=== PATIENT | female | born 1935 | race Caucasian/White ===

== ENCOUNTER 2020-01-11 15:30 | Inpatient (IN) ==
[2020-01-11] MEDS ORDERED: Naloxone 0.4 MG/ML INJ IVP PRN (18:16)
[2020-01-11] MEDS ORDERED: Acetaminophen 325 MG TABLET PO PRN (18:16)
[2020-01-11] MEDS ORDERED: Furosemide 20 MG TABLET PO PRN (19:26)
[2020-01-11 20:02] LABS: Basophils % 0.3 %; Eosinophils % 0.1 %; Hematocrit 36.4 % (35.3-44.9); Hemoglobin 11.4 g/dL (11.5-15.4); Immature Granulocytes % 0.3 % (0-4); Lymphocytes # 7.4 K/mcL (0.6-4.6); Lymphocytes % 46.7 %; Mean Corpuscular HGB Conc 31.3 g/dL (31.6-35.5); Mean Corpuscular Hemoglobin 30.2 pg (28.0-33.3); Mean Corpuscular Volume 96.6 fL (83.0-100.0); Mean Platelet Volume 9.9 fL (9.4-12.4); Monocytes # 0.9 K/mcL (0.0-1.3); Monocytes % 5.5 %; Neutrophils # 7.4 K/mcL (1.6-8.9); Platelet Count 117 K/mcL (140-400); Red Blood Count 3.77 M/mcL (3.82-4.97); Red Cell Distribution Width 14.1 % (11.5-14.5); Segmented Neutrophils % 47.1 %; White Blood Count 15.8 K/mcL (4.3-11.1)
[2020-01-11 20:05] LABS: Basophils # 0.1 K/mcL (0.0-0.2)
[2020-01-11 20:06] LABS: INR 1.7; Prothrombin Time 19.2 Seconds (9.4-12.1)
[2020-01-11 20:09] LABS: Activated Partial Thrombo Time 34.8 Seconds (26.0-36.0)
[2020-01-11 20:19] LABS: BUN/Creatinine Ratio 26 (6-26); Blood Urea Nitrogen 18 mg/dL (8-23); Calcium 8.7 mg/dL (8.6-10.3); Carbon Dioxide 29 mEq/L (23-29); Chloride 105 mEq/L (98-107); Glucose 126 mg/dL (70-105); Magnesium 1.9 mg/dL (1.6-2.6); Osmolality,Calculated 291 (280-300); Phosphorous 4.4 mg/dL (2.7-4.5); Sodium 139 mEq/L (136-145); eGFR For African Americans > 60 (> 60); eGFR For Non-African Americans > 60 (> 60)
[2020-01-11 20:20] LABS: Reactive Lymphocytes Present (Not Present)
[2020-01-11] MEDS: *HR* HYDROcodone/Acet 5/325 mg TABLET PO PRN (21:06)
[2020-01-11] MEDS: Apixaban 5 MG TABLET PO SCH (21:33)
[2020-01-12] MEDS: *HR* HYDROcodone/Acet 5/325 mg TABLET PO PRN ×3 (04:41→18:49)
[2020-01-12] MEDS: Apixaban 5 MG TABLET PO SCH (09:29)
[2020-01-12] MEDS: Aspirin Enteric Coated 81 MG Tablet PO SCH (09:29)
[2020-01-12] MEDS: lisinopriL 20 MG TABLET PO SCH (09:30)
[2020-01-12] MEDS: DilTIAZem CD (24hr) 120 MG CAP.ER.24H PO SCH (09:30)
[2020-01-12] MEDS: FLUoxetine 20 MG CAPSULE PO SCH (09:30)
[2020-01-12] MEDS: D5% in 0.9% NACL 1,000 ML IVC SCH (15:33)
[2020-01-12] MEDS: *HR* Heparin 5,000 UNIT/ML VIAL SQ SCH (18:47)
[2020-01-12 19:35] LABS: Bilirubin,Urine Negative (Negative); Blood,Urine Large (Negative); Clarity,Urine Cloudy (Clear); Color,Urine Dark Yellow (Yellow); Glucose,Urine (UA) Normal (Normal); Ketones,Urine Negative (Negative); Leukocyte Esterase,Urine Trace (Negative); Nitrite,Urine Negative (Negative); PH,Urine 5.5 pH Units (5.0-8.0); Protein,Urine Negative (Neg-Trace); Specific Gravity,Urine 1.015 (1.010-1.025); Urobilinogen,Urine Normal (Normal)
[2020-01-12 20:01] LABS: Squamous Epithelial Cell,Urine Few per lpf (None-Few)
[2020-01-13] MEDS: *HR* HYDROcodone/Acet 5/325 mg TABLET PO PRN ×2 (00:43→09:53)
[2020-01-13] MEDS: *HR* Heparin 5,000 UNIT/ML VIAL SQ SCH ×2 (04:41→17:11)
[2020-01-13 04:44] LABS: Immature Granulocytes % 0.3 % (0-4)
[2020-01-13 04:46] LABS: Basophils # 0.1 K/mcL (0.0-0.2); Basophils % 0.3 %; Eosinophils % 0.9 %; Hematocrit 30.8 % (35.3-44.9); Hemoglobin 9.5 g/dL (11.5-15.4); Immature Platelets 2.4 % (1.1-6.1); Lymphocytes # 10.3 K/mcL (0.6-4.6); Lymphocytes % 64.9 %; Mean Corpuscular HGB Conc 30.8 g/dL (31.6-35.5); Mean Corpuscular Hemoglobin 30.3 pg (28.0-33.3); Mean Corpuscular Volume 98.1 fL (83.0-100.0); Mean Platelet Volume 10.2 fL (9.4-12.4); Monocytes # 0.9 K/mcL (0.0-1.3); Monocytes % 5.9 %; Neutrophils # 4.4 K/mcL (1.6-8.9); Nucleated Red Blood Cells 0.1 /100 WBC (0); Red Blood Count 3.14 M/mcL (3.82-4.97); Red Cell Distribution Width 14.3 % (11.5-14.5); Segmented Neutrophils % 27.7 %; White Blood Count 15.9 K/mcL (4.3-11.1)
[2020-01-13 04:53] LABS: Eosinophils # 0.1 K/mcL (0.0-0.6); Platelet Count 95 K/mcL (140-400)
[2020-01-13 05:08] LABS: BUN/Creatinine Ratio 26 (6-26); Blood Urea Nitrogen 24 mg/dL (8-23); Calcium 8.3 mg/dL (8.6-10.3); Carbon Dioxide 27 mEq/L (23-29); Chloride 104 mEq/L (98-107); Glucose 156 mg/dL (70-105); Osmolality,Calculated 289 (280-300); Potassium 3.7 mEq/L (3.5-5.1); Sodium 136 mEq/L (136-145); eGFR For African Americans > 60 (> 60); eGFR For Non-African Americans 58 (> 60)
[2020-01-13 05:19] LABS: Platelet Estimate Decreased (Normal); Reactive Lymphocytes Present (Not Present)
[2020-01-13] MEDS: D5% in 0.9% NACL 1,000 ML IVC SCH ×2 (05:22→18:02)
[2020-01-13] MEDS: FLUoxetine 20 MG CAPSULE PO SCH (09:41)
[2020-01-13] MEDS: DilTIAZem CD (24hr) 120 MG CAP.ER.24H PO SCH (09:41)
[2020-01-13] MEDS: lisinopriL 20 MG TABLET PO SCH (09:41)
[2020-01-13] MEDS: Aspirin Enteric Coated 81 MG Tablet PO SCH (09:41)
[2020-01-13] MEDS ORDERED: *HR* HYDROcodone/Acet 5/325 mg TABLET PO PRN (11:59)
[2020-01-13 18:59] LABS: INR 1.3; Prothrombin Time 15.3 Seconds (9.4-12.1)
[2020-01-13] MEDS: *HR* OxyCODONE/APAP 5/325 TABLET PO PRN (20:03)
[2020-01-14] MEDS: *HR* Heparin 5,000 UNIT/ML VIAL SQ SCH (04:53)
[2020-01-14 05:32] LABS: Basophils # 0.1 K/mcL (0.0-0.2); Basophils % 0.3 %; Eosinophils # 0.2 K/mcL (0.0-0.6); Eosinophils % 0.8 %; Hematocrit 28.2 % (35.3-44.9); Hemoglobin 8.5 g/dL (11.5-15.4); Immature Granulocytes % 0.2 % (0-4); Lymphocytes # 13.1 K/mcL (0.6-4.6); Lymphocytes % 70.9 %; Mean Corpuscular HGB Conc 30.1 g/dL (31.6-35.5); Mean Corpuscular Hemoglobin 30.1 pg (28.0-33.3); Mean Platelet Volume 10.1 fL (9.4-12.4); Monocytes % 5.6 %; Neutrophils # 4.1 K/mcL (1.6-8.9); Platelet Count 100 K/mcL (140-400); Red Blood Count 2.82 M/mcL (3.82-4.97); Red Cell Distribution Width 14.2 % (11.5-14.5); Segmented Neutrophils % 22.2 %; White Blood Count 18.4 K/mcL (4.3-11.1)
[2020-01-14] MEDS: *HR* OxyCODONE/APAP 5/325 TABLET PO PRN (05:37)
[2020-01-14 05:50] LABS: BUN/Creatinine Ratio 19 (6-26); Blood Urea Nitrogen 13 mg/dL (8-23); Calcium 7.9 mg/dL (8.6-10.3); Carbon Dioxide 29 mEq/L (23-29); Chloride 108 mEq/L (98-107); Glucose 151 mg/dL (70-105); Osmolality,Calculated 293 (280-300); Potassium 3.7 mEq/L (3.5-5.1); Sodium 140 mEq/L (136-145); eGFR For African Americans > 60 (> 60); eGFR For Non-African Americans > 60 (> 60)
[2020-01-14 05:57] LABS: Platelet Estimate Slight Decrease (Normal); Reactive Lymphocytes Present (Not Present); Smudge Cells Present (Not Present)
[2020-01-14] MEDS ORDERED: Ropivacaine/PF 0.5% 30 ML VIAL ONE (07:00)
[2020-01-14] MEDS ORDERED: ROPIVACAINE/PF/NS 0.25% 1 EACH SYRINGE INTRAART ONE (07:01)
[2020-01-14] MEDS ORDERED: Ethanol\\Acetic Acid\\Na Ace\\Ben 1,000 ML IRRIG.SOLN IR ONE (07:05)
[2020-01-14] MEDS ORDERED: Dexamethasone 4 MG/ML VIAL ONE (07:09)
[2020-01-14] MEDS ORDERED: *HR* Rocuronium Bromide 50 MG/5 ML VIAL ONE (07:09)
[2020-01-14] MEDS ORDERED: Ondansetron 4 MG/2 ML VIAL ONE (07:09)
[2020-01-14] MEDS ORDERED: Lidocaine HCL 4 ML Topical Solution (Laryng-O-Jet Kit Sterile Pak) TP ONE (07:09)
[2020-01-14] MEDS ORDERED: Lidocaine -MPF 2% 2 ML VIAL ONE ×2 (07:09→07:21)
[2020-01-14] MEDS ORDERED: *HR* Succinylcholine 200 MG/10 ML VIAL IVP ONE (07:09)
[2020-01-14] MEDS ORDERED: *HR* FentaNYL (PF) 100 MCG/2 ML VIAL ONE (07:13)
[2020-01-14] MEDS ORDERED: *HR* Propofol 200 MG/20 ML VIAL IVP ONE (07:14)
[2020-01-14] MEDS ORDERED: *HR* Midazolam HCl 2 MG/2 ML VIAL ONE (07:14)
[2020-01-14] MEDS ORDERED: *HR* OxyCODONE Immed Rel 5 MG TABLET PO PRN ×2 (07:25→12:13)
[2020-01-14] MEDS ORDERED: Morphine Sulfate 2 MG/ML SYRINGE IVP PRN (07:25)
[2020-01-14] MEDS ORDERED: Ondansetron 4 MG/2 ML VIAL IVP ONE (07:25)
[2020-01-14] MEDS ORDERED: Clindamycin 900 MG/50 ML 900 MG/50 ML IV.SOLN IVPB ONE (07:31)
[2020-01-14] MEDS ORDERED: EPHEDrine 50 MG/ML VIAL ONE (08:03)
[2020-01-14] MEDS ORDERED: *HR* Phenylephrine 10 MG/ML VIAL ONE (08:04)
[2020-01-14] MEDS ORDERED: *HR* PHENYLEPHRINE 1,000 MCG/10 ML SYRINGE IVP ONE (09:18)
[2020-01-14] MEDS ORDERED: DilTIAZem 50 MG in 0.9 % Sodium Chloride 40 ML IVC SCH (09:30)
[2020-01-14] MEDS ORDERED: Ringers Solution, Lactated 1,000 ML ONE (09:55)
[2020-01-14] MEDS ORDERED: Sennosides 8.6 MG TABLET PO PRN (12:13)
[2020-01-14] MEDS ORDERED: Ringers Solution, Lactated 1,000 ML IVC SCH (12:13)
[2020-01-14] MEDS ORDERED: Ondansetron 4 MG/2 ML VIAL IVP PRN (12:13)
[2020-01-14] MEDS ORDERED: MOM Conc 10 ML UD.LIQ PO PRN (12:13)
[2020-01-14] MEDS: DilTIAZem 50 MG in 0.9 % Sodium Chloride 40 ML IVC SCH ×2 (15:02→17:04)
[2020-01-14] MEDS: *HR* HYDROcodone/Acet 5/325 mg TABLET PO PRN (15:11)
[2020-01-14] MEDS ORDERED: Dextrose Gel 15 GM/37.5 ML TUBE PO PRN ×2 (15:51)
[2020-01-14] MEDS ORDERED: D5% in Water 1,000 ML IVC PRN (15:51)
[2020-01-14] MEDS ORDERED: *HR* Dextrose 50 % in Water (Syg) 50 ML SYRINGE IVP PRN (15:51)
[2020-01-14] MEDS: Clindamycin 900 MG/50 ML 900 MG/50 ML IV.SOLN IVPB SCH ×2 (16:09→23:19)
[2020-01-14] MEDS: Insulin LISPRO 300 UNITS/3 ML VIAL SQ SCH ×2 (17:37→21:26)
[2020-01-14 18:46] LABS: BUN/Creatinine Ratio 22 (6-26); Blood Urea Nitrogen 19 mg/dL (8-23); Calcium 7.8 mg/dL (8.6-10.3); Carbon Dioxide 24 mEq/L (23-29); Chloride 104 mEq/L (98-107); Glucose 235 mg/dL (70-105); Magnesium 1.6 mg/dL (1.6-2.6); Osmolality,Calculated 292 (280-300); Potassium 4.1 mEq/L (3.5-5.1); Sodium 136 mEq/L (136-145); eGFR For African Americans > 60 (> 60); eGFR For Non-African Americans > 60 (> 60)
[2020-01-14] MEDS: Gabapentin 300 MG CAPSULE PO SCH (21:14)
[2020-01-15 00:53] LABS: INR 1.2; Prothrombin Time 13.9 Seconds (9.4-12.1)
[2020-01-15 00:55] LABS: Activated Partial Thrombo Time 28.2 Seconds (26.0-36.0)
[2020-01-15 00:58] LABS: Hematocrit 23.5 % (35.3-44.9); Hemoglobin 7.3 g/dL (11.5-15.4)
[2020-01-15 00:59] LABS: BUN/Creatinine Ratio 25 (6-26); Blood Urea Nitrogen 20 mg/dL (8-23); Calcium 7.8 mg/dL (8.6-10.3); Carbon Dioxide 25 mEq/L (23-29); Chloride 103 mEq/L (98-107); Glucose 189 mg/dL (70-105); Osmolality,Calculated 290 (280-300); Potassium 4.1 mEq/L (3.5-5.1); Sodium 136 mEq/L (136-145); eGFR For African Americans > 60 (> 60); eGFR For Non-African Americans > 60 (> 60)
[2020-01-15] MEDS ORDERED: Furosemide 20 MG/2 ML VIAL IVP ONE ×2 (02:24→15:53)
[2020-01-15] MEDS ORDERED: 0.9 % Sodium Chloride 250 ML IVC SCH (02:30)
[2020-01-15 04:09] LABS: Basophils % 0.2 %; Lymphocytes % 55.1 %; Mean Platelet Volume 10.1 fL (9.4-12.4)
[2020-01-15 04:11] LABS: Hematocrit 24.6 % (35.3-44.9); Hemoglobin 7.6 g/dL (11.5-15.4); Immature Granulocytes % 0.5 % (0-4); Immature Platelets 2.2 % (1.1-6.1); Lymphocytes # 13.3 K/mcL (0.6-4.6); Mean Corpuscular HGB Conc 30.9 g/dL (31.6-35.5); Mean Corpuscular Hemoglobin 30.9 pg (28.0-33.3); Monocytes # 1.2 K/mcL (0.0-1.3); Neutrophils # 9.5 K/mcL (1.6-8.9); Platelet Count 108 K/mcL (140-400); Red Blood Count 2.46 M/mcL (3.82-4.97); Red Cell Distribution Width 14.2 % (11.5-14.5); Segmented Neutrophils % 39.2 %; White Blood Count 24.1 K/mcL (4.3-11.1)
[2020-01-15 04:13] LABS: Basophils # 0.1 K/mcL (0.0-0.2)
[2020-01-15 05:10] LABS: Platelet Estimate Slight Decrease (Normal); Smudge Cells Present (Not Present)
[2020-01-15] MEDS: *HR* HYDROcodone/Acet 5/325 mg TABLET PO PRN ×2 (05:10→20:52)
[2020-01-15] MEDS: Gabapentin 300 MG CAPSULE PO SCH ×2 (07:57→20:52)
[2020-01-15] MEDS: Insulin LISPRO 300 UNITS/3 ML VIAL SQ SCH ×4 (07:58→22:58)
[2020-01-15] MEDS: lisinopriL 20 MG TABLET PO SCH (07:58)
[2020-01-15] MEDS: DilTIAZem CD (24hr) 120 MG CAP.ER.24H PO SCH (07:58)
[2020-01-15] MEDS: Aspirin 81 MG TAB.CHEW PO SCH (07:58)
[2020-01-15] MEDS: FLUoxetine 20 MG CAPSULE PO SCH (07:59)
[2020-01-15 11:06] LABS: Hematocrit 26.9 % (35.3-44.9); Hemoglobin 8.4 g/dL (11.5-15.4)
[2020-01-15] MEDS: DilTIAZem 50 MG in 0.9 % Sodium Chloride 40 ML IVC SCH (11:42)
[2020-01-15 16:46] LABS: Hematocrit 29.5 % (35.3-44.9); Hemoglobin 9.5 g/dL (11.5-15.4)
[2020-01-16 02:02] LABS: Hematocrit 29.8 % (35.3-44.9); Hemoglobin 9.4 g/dL (11.5-15.4); Mean Corpuscular HGB Conc 31.5 g/dL (31.6-35.5); Mean Corpuscular Hemoglobin 30.2 pg (28.0-33.3); Mean Corpuscular Volume 95.8 fL (83.0-100.0); Platelet Count 107 K/mcL (140-400); Red Blood Count 3.11 M/mcL (3.82-4.97); Red Cell Distribution Width 15.1 % (11.5-14.5); White Blood Count 20.3 K/mcL (4.3-11.1)
[2020-01-16 02:21] LABS: BUN/Creatinine Ratio 33 (6-26); Blood Urea Nitrogen 22 mg/dL (8-23); Calcium 7.8 mg/dL (8.6-10.3); Carbon Dioxide 27 mEq/L (23-29); Chloride 105 mEq/L (98-107); Glucose 145 mg/dL (70-105); Osmolality,Calculated 290 (280-300); Potassium 4.1 mEq/L (3.5-5.1); Sodium 137 mEq/L (136-145); eGFR For African Americans > 60 (> 60); eGFR For Non-African Americans > 60 (> 60)
[2020-01-16 04:58] LABS: Hematocrit 28.6 % (35.3-44.9); Hemoglobin 9.3 g/dL (11.5-15.4)
[2020-01-16] MEDS: Aspirin 81 MG TAB.CHEW PO SCH (07:52)
[2020-01-16] MEDS: DilTIAZem CD (24hr) 120 MG CAP.ER.24H PO SCH (07:52)
[2020-01-16] MEDS: Gabapentin 300 MG CAPSULE PO SCH (07:52)
[2020-01-16] MEDS: FLUoxetine 20 MG CAPSULE PO SCH (07:52)
[2020-01-16] MEDS: lisinopriL 20 MG TABLET PO SCH (07:52)
[2020-01-16] MEDS: Insulin LISPRO 300 UNITS/3 ML VIAL SQ SCH (07:56)
[2020-01-16] MEDS: *HR* HYDROcodone/Acet 5/325 mg TABLET PO PRN ×2 (08:07→14:54)
[2020-01-16 10:23] VITALS: BP 120/76
== END 2020-01-16 15:11 | DRG 483 ==
LOC: 3NENU → SUATTDRO 17:54 → 3NENU 19:22 → SUATTDRO 01-12 15:52
PROVIDERS: ADMIT Internal Medicine; ATTEND Internal Medicine